=== PATIENT | male | born 1970 ===

== ENCOUNTER 2017-09-06 11:58 | Outpatient (CLI) | payer OTHER ==
--- NOTE | 2017-09-06 14:09 | RAD ---
PA AND LATERAL CHEST: Indication: Acute bronchitis. History of flu. Shortness of breath. Comparison: None. FINDINGS: No airspace consolidation, pleural effusion or pneumothorax is evident. No acute osseous abnormality is evident. IMPRESSION: No acute cardiopulmonary abnormality. POS: [facility]
== END 2017-09-06 11:59 | disposition home or self-care (01) ==
LOC: SCSRAD 11:58
PROVIDERS: ATTEND Family Medicine
DX: J20.9 Acute bronchitis, unspecified (principal)
CPT/HCPCS: 71046